=== PATIENT | male | born 1960 | race African-American/Black ===

== ENCOUNTER 2017-11-05 22:21 | Emergency (ER) | payer OTHER ==
[~2017-11-05] VITALS: Ht 177.8 cm; Wt 86.0 kg
[~2017-11-05 22:21] MED LIST: ALBU17AE27 IH; ALBU8.5H8 IH; BECL8.7A6 IH; PSEU120T44 PO
[2017-11-06 00:38] LABS: BASOPHILS # (AUTO) 0.02 K/uL (0.00-0.20); BASOPHILS % (AUTO) 0.3 % (0.0-2.0); EOSINOPHILS # (AUTO) 0.48 K/uL (0.00-0.70); EOSINOPHILS % (AUTO) 7.32 % (1.0-6.0); HEMATOCRIT 44.5 % (41-53); HEMOGLOBIN 14.4 g/dL (13.5-17.5); LYMPHOCYTES # (AUTO) 1.2 K/uL (1.0-4.8); MEAN CORPUSCULAR HEMOGLOBIN 30.1 pg (26.0-34.0); MEAN CORPUSCULAR HGB CONC 32.4 G/dL (31.0-37.0); MEAN CORPUSCULAR VOLUME 93 fL (80-100); MONOCYTES # (AUTO) 0.5 K/uL (0.1-1.0); MONOCYTES % (AUTO) 7.2 % (2.0-9.0); NEUTROPHILS # (AUTO) 4.4 K/uL (1.8-7.7); NEUTROPHILS % (AUTO) 67.2 % (40.0-70.0); PLATELET COUNT (AUTO) 314 K/uL (150-450); RED BLOOD CELL COUNT(AUTO) 4.79 MIL/uL (4.50-5.90); RED CELL DISTRIBUTION WIDTH 13.1 % (11.5-14.5)
[2017-11-06 00:46] LABS: ANION GAP 7 mmol/L (8-16); CALCIUM, TOTAL 9.3 mg/dL (8.8-10.5); CARBON DIOXIDE 33 mmol/L (22-29); CHLORIDE 99 mmol/L (98-107); CREATININE 1.02 mg/dL (0.60-1.30); GLOMERULAR FILTR. RATE CALC > 60 mL/min (>60); GLUCOSE,RANDOM 96 mg/dL (70-110); POTASSIUM 4.6 mmol/L (3.5-5.1); SODIUM SERUM 139 mmol/L (136-145); UREA NITROGEN, BLOOD 16 mg/dL (7-18)
[2017-11-06 00:53] LABS: ALANINE AMINOTRANSFERASE 43 U/L (12-78); ALBUMIN 4.2 g/dL (3.4-5.0); ALKALINE PHOSPHATASE 96 U/L (46-116); ASPARTATE AMINOTRANSFERASE 33 U/L (15-37); BILIRUBIN,TOTAL 0.6 mg/dL (0.1-1.0); LIPASE 50 U/L (73-393)
[2017-11-06] MEDS ORDERED: GuaiFENesin/D-METHORPHAN [SUGAR-FREE] 200-20MG/10 ML SYRUP UDCUP PO ONE (02:15)
[2017-11-06] MEDS ORDERED: ACETAMINOPHEN 500 MG TABLET PO ONE (02:15)
[2017-11-06 03:02] VITALS: BP 160/76
[2017-11-06 03:09] LABS: APPEARANCE,URINE CLEAR (CLEAR); BILIRUBIN,URINE NEGATIVE (NEGATIVE); GLUCOSE, URINE (UA) NEGATIVE (NEGATIVE); KETONES,URINE NEGATIVE (NEGATIVE); LEUKOCYTE ESTERASE ,URINE NEGATIVE (NEGATIVE); NITRATE,URINE NEGATIVE (NEGATIVE); OCCULT BLOOD,URINE NEGATIVE (NEGATIVE); PROTEIN,URINE NEGATIVE (NEGATIVE); UROBILINOGEN,URINE 0.2 mg/dL (<=1.0)
== END 2017-11-06 03:49 | disposition home or self-care (01) ==
LOC: EMS 22:21
DX: J40 Bronchitis, not specified as acute or chronic (principal); J06.9 Acute upper respiratory infection, unspecified; J02.9 Acute pharyngitis, unspecified; J45.909 Unspecified asthma, uncomplicated; Z88.0 Allergy status to penicillin
CPT/HCPCS: 93005; 99285

== ENCOUNTER 2017-12-18 17:26 | Emergency (ER) | payer OTHER ==
[~2017-12-18] VITALS: Ht 177.8 cm; Wt 87.3 kg
[2017-12-18] MEDS ORDERED: IPRATROPIUM BROMIDE 0.5 MG/2.5 ML NEB SOLUTION NEB ONE (17:45)
[2017-12-18] MEDS ORDERED: ACETAMINOPHEN 325 MG TABLET PO ONE (17:45)
[2017-12-18] MEDS ORDERED: ALBUTEROL SULFATE 2.5 MG/0.5 ML NEB SOLUTION NEB ONE (17:45)
[2017-12-18] MEDS ORDERED: PredniSONE 20 MG TABLET PO ONE (18:30)
[2017-12-18 18:42] VITALS: BP 150/96
[2017-12-18 18:48] LABS: INFLUENZA TYPE A POSITIVE FOR TYPE A (NEGATIVE); INFLUENZA TYPE B NEGATIVE FOR TYPE B (NEGATIVE)
== END 2017-12-18 19:07 | disposition home or self-care (01) ==
LOC: EMS 17:28
DX: J11.1 Influenza due to unidentified influenza virus with other respiratory manifestations (principal); J40 Bronchitis, not specified as acute or chronic; Z88.0 Allergy status to penicillin
CPT/HCPCS: 87804; 94640; 99285; J7512; J7613

== ENCOUNTER 2019-05-15 11:25 | Emergency (ER) | payer OTHER ==
[~2019-05-15] VITALS: Ht 177.8 cm; Wt 93.6 kg
[2019-05-15] MEDS ORDERED: LORA10TA7 PO (11:34)
[2019-05-15] MEDS ORDERED: HYDR25TA PO (11:34)
[2019-05-15] MEDS ORDERED: OXYC20 PO (11:34)
[2019-05-15] MEDS ORDERED: HYDR-4455 PO (11:34)
[2019-05-15] MEDS ORDERED: POVIDONE-IODINE 10% 15 ML SOLUTION UD TP ONE (12:30)
[2019-05-15] MEDS ORDERED: PERTUSS(ACELL),DIPH,TET VAC/PF 0.5 ML VIAL IM ONE (12:30)
[2019-05-15] MEDS ORDERED: IBUPROFEN 800 MG TABLET PO ONE (12:30)
[2019-05-15 13:05] VITALS: BP 136/82
== END 2019-05-15 13:35 | disposition home or self-care (01) ==
LOC: EMS 11:26
DX: S61.431A Puncture wound without foreign body of right hand, initial encounter (principal); J45.909 Unspecified asthma, uncomplicated; W50.3XXA Accidental bite by another person, initial encounter; Y93.89 Activity, other specified; Y92.89 Other specified places as the place of occurrence of the external cause; Y99.8 Other external cause status
CPT/HCPCS: 90471; 90715

== ENCOUNTER 2020-02-18 19:14 | Emergency (ER) | payer MEDICAID, OTHER ==
[~2020-02-18] VITALS: Ht 177.8 cm; Wt 88.6 kg
[~2020-02-18 19:14] MED LIST changes: +HYDR-1475 PO; +HYDR-4455 PO; +LORA10TA7 PO; +OXYC20TA58 PO; -PSEU120T44 PO
[2020-02-18] MEDS ORDERED: IBUPROFEN 400 MG TABLET PO ONE (21:00)
[2020-02-18] MEDS ORDERED: DIAZEPAM 2 MG TABLET PO ONE (21:00)
[2020-02-18] MEDS ORDERED: ACETAMINOPHEN 325 MG TABLET PO ONE (21:00)
[2020-02-18] MEDS ORDERED: LIDOCAINE 5% TRANSDERMAL PATCH TD ONE (21:00)
[2020-02-18 21:21] VITALS: BP 129/74
== END 2020-02-18 21:56 | disposition home or self-care (01) ==
LOC: EMS 19:14
DX: M54.5 Low back pain (principal); M54.6 Pain in thoracic spine; J45.909 Unspecified asthma, uncomplicated; V49.9XXA Car occupant (driver) (passenger) injured in unspecified traffic accident, initial encounter; Y93.89 Activity, other specified; Y92.89 Other specified places as the place of occurrence of the external cause; Y99.8 Other external cause status

== ENCOUNTER 2022-01-24 01:45 | Emergency (ER) | payer MEDICAID, OTHER ==
[~2022-01-24] VITALS: Ht 177.8 cm; Wt 68.2 kg
[~2022-01-24 01:45] MED LIST changes: -HYDR-1475 PO; +HYDR25TA2 PO
[2022-01-24] MEDS ORDERED: ALBUTEROL SULFATE 2.5 MG/0.5 ML NEB SOLUTION NEB ONE (02:00)
[2022-01-24] MEDS ORDERED: IPRATROPIUM BROMIDE 0.5 MG/2.5 ML NEB SOLUTION NEB ONE (02:00)
[2022-01-24] MEDS ORDERED: PredniSONE 20 MG TABLET PO ONE (02:00)
[2022-01-24] MEDS ORDERED: PRED-554 PO (03:01)
[2022-01-24] MEDS ORDERED: ALBUTEROL SULFATE HFA 90 MCG/PUFF 8 GM INHALER IH ONE (03:15)
[2022-01-24 03:34] VITALS: BP 130/79
== END 2022-01-24 03:49 | disposition home or self-care (01) ==
LOC: EMS 01:47
DX: J45.909 Unspecified asthma, uncomplicated (principal); Z88.0 Allergy status to penicillin; Z79.899 Other long term (current) drug therapy
CPT/HCPCS: 94640; 99284; J7512; J3535

== ENCOUNTER 2023-03-25 17:21 | Emergency (ER) | payer OTHER ==
[~2023-03-25] VITALS: Ht 177.8 cm; Wt 65.9 kg
[~2023-03-25 17:21] MED LIST changes: +PRED-554 PO
[2023-03-25] MEDS ORDERED: LOSA-381 PO (17:48)
[2023-03-25] MEDS ORDERED: IPRA3AMP24 NEB (17:48)
[2023-03-25] MEDS ORDERED: OMEP40CA21 PO (17:48)
[2023-03-25] MEDS ORDERED: OLOP30.53 NASAL (17:48)
[2023-03-25] MEDS ORDERED: LORA-997 PO (17:48)
[2023-03-25] MEDS ORDERED: HYDR25TA PO (17:48)
[2023-03-25] MEDS ORDERED: AMIT75TA55 PO (17:48)
[2023-03-25] MEDS ORDERED: ALBU18HF12 IH (17:48)
[2023-03-25] MEDS ORDERED: MONT-40 PO (17:48)
[2023-03-25] MEDS ORDERED: [UNRECOGNIZED DRUG - CODE] OU (17:56)
[2023-03-25] MEDS ORDERED: TIOT4MIS5 IH (17:56)
[2023-03-25] MEDS ORDERED: AZEL6DRO5 OU (17:56)
[2023-03-25] MEDS ORDERED: FLUT16SP NASAL (17:56)
[2023-03-25] MEDS ORDERED: BUSP15 PO (17:56)
[2023-03-25] MEDS ORDERED: FLUT12AE7 IH (17:56)
[2023-03-25] MEDS ORDERED: CHOL500045 PO (17:56)
[2023-03-25] MEDS ORDERED: IPRATROPIUM BROMIDE 0.5 MG/2.5 ML NEB SOLUTION NEB ONE (18:00)
[2023-03-25] MEDS ORDERED: ALBUTEROL SULFATE 2.5 MG/0.5 ML NEB SOLUTION NEB ONE (18:00)
[2023-03-25] MEDS ORDERED: PredniSONE 20 MG TABLET PO ONE (18:00)
[2023-03-25] MEDS ORDERED: PRED-554 PO (19:55)
[2023-03-25 20:00] VITALS: BP 124/81
== END 2023-03-25 20:09 | disposition home or self-care (01) ==
LOC: EMS 17:21
DX: J45.901 Unspecified asthma with (acute) exacerbation (principal); I10 Essential (primary) hypertension; J44.9 Chronic obstructive pulmonary disease, unspecified; Z87.891 Personal history of nicotine dependence; Z88.0 Allergy status to penicillin
CPT/HCPCS: 99283; 94640; J7512